=== PATIENT | female | born 1960 | race Caucasian/White ===

== ENCOUNTER 2016-07-11 10:07 | Day surgery (SDC) | payer OTHER ==
[~2016-07-11] VITALS: Ht 160 cm; Wt 68.9 kg
[~2016-07-11 10:07] MED LIST: ADVAIR 500-501 EACH IH; ALBUTEROL17 GM IH; AMBIEN10 M1 PO; AMOX TR-K CLV1 EAC4 PO; ASPIR-LOW81 MG PO; ASPIRIN E.C.81 M1 PO; Advair 500/50 Diskus IH; Aldactone PO; Aspirin E.C. PO; BENZONATATE200 MG PO; CALCITRIOL0.25 MCG PO; CALCIUM ACETAT667 MG PO; CELEXA40 MG PO; CEPHALEXIN500 M2 PO; COREG25 M1 PO; CRESTOR40 MG PO; Coreg PO; Diatx W/Zinc,Folbee PO; FLEXERIL5 MG PO; FOLBEE PLUS TABL5 MG; GENTAMICIN SULF30 GM TP; GUMMI BEAR MUL1 EACH PO; HUMALOG100 UNITS/ SC; HUMULIN R100 UNITS/ SC; Hydrodiuril,Oretic,E PO; IRBESARTAN150 MG PO; K-DUR20 MEQ PO; LANTUS 3 M100 UNITS/ SC; LASIX20 MG PO; LASIX40 MG PO; LIPITOR40 MG PO; LOSARTAN POTASS50 MG PO; METOPROLOL SUCC25 MG PO; NABI650T PO; NORVASC10 MG PO; NOVOLOG PE100 UNITS/ SC; POLYETHYLENE GL17 GM PO; PRILOSEC20 MG PO; PROAIR HFA8.5 GM IH; PROTONIX40 MG PO; PROVENTIL,2.5 MG/3 M IH; Protonix PO; Proventil,Ventolin H IH; SENNA PLUS TAB1 EACH PO; TYLENOL REGULA325 MG PO; VALSARTAN40 MG PO; VITAMIN D2400 UNIT PO; Vicodin,Norco 5/325 PO; Vitamin D, Drisdol PO; Xanax PO; ZESTRIL,PRINIVI10 M1 PO; ZESTRIL,PRINIVI40 MG PO; celeBREX PO; celeXA PO
== END 2016-07-11 17:33 | disposition home or self-care (01) ==
LOC: CATH 10:07
PROC: 047K3Z1 Dilation of Right Femoral Artery using Drug-Coated Balloon, Percutaneous Approach (ICD-10-PCS; principal; 2016-07-11)
DX: I70.213 Atherosclerosis of native arteries of extremities with intermittent claudication, bilateral legs (principal); I70.92 Chronic total occlusion of artery of the extremities; I25.10 Atherosclerotic heart disease of native coronary artery without angina pectoris; J44.9 Chronic obstructive pulmonary disease, unspecified; Z99.2 Dependence on renal dialysis; N18.6 End stage renal disease; E11.22 Type 2 diabetes mellitus with diabetic chronic kidney disease
CPT/HCPCS: C1725; C1760; C1769; C1887; C1894; J1644; J2250; J3010; S0020

== ENCOUNTER → 2016-10-17 | Outpatient (CLI) | payer MEDICARE, OTHER ==
[~2016-10-17] MED LIST changes: +DIALYVITE TABL1 EACH PO
== END | disposition home or self-care (01) ==
LOC: CDC 13:48
DX: Z01.810 Encounter for preprocedural cardiovascular examination (principal); R94.31 Abnormal electrocardiogram [ECG] [EKG]; N19 Unspecified kidney failure
CPT/HCPCS: 93000

== ENCOUNTER 2016-12-24 11:16 | Observation (INO) | payer OTHER ==
[~2016-12-24] VITALS: Ht 160 cm; Wt 71.9 kg
[2016-12-24 12:13] LABS: HEMATOCRIT 30.7 % (36.0-46.0); MCH 27.9 PG (29.0-34.0); MCHC 31.6 G/DL (30.0-36.0); MCV 88.2 FL (83-99); MEAN PLAT.VOLUME 12.3 uM^3 (9.5-12.4); PLATELET COUNT 149 K/uL (156-360); RBC DIS.WIDTH-CV 14.1 % (11.8-14.6); RBC DIS.WIDTH-SD 45.1 % (39-53); RED BLOOD COUNT 3.48 M/uL (3.80-5.20); WHITE BLOOD COUNT 4.2 K/uL (4.1-10.2)
[2016-12-24 12:25] LABS: CHLORIDE 106 mEq/L (99-109); SODIUM 142 mEq/L (136-147)
[2016-12-24 12:26] LABS: MAGNESIUM 1.7 mg/dL (1.3-2.7)
[2016-12-24 12:27] LABS: GLUCOSE 162 mg/dL (70-99)
[2016-12-24 12:29] LABS: ANION GAP 13 MEQ/L (2-14); TOTAL BILIRUBIN 0.5 mg/dL (0.0-1.0)
[2016-12-24 12:31] LABS: ALKALINE PHOSPHATASE 55 IU/L (3-129); GFR ESTIMATE (CALCULATED) 9 mL/min/
[2016-12-24 12:32] LABS: UREA NITROGEN (BUN) 65 mg/dL (9-23)
[2016-12-24 12:34] LABS: TROP-I INTERPRETATION NEGATIVE; TROPONIN-I 0.01 ng/mL (0.0-0.30)
[2016-12-24] MEDS ORDERED: DIOVAN160 MG PO (17:41)
[2016-12-24] MEDS ORDERED: K-DUR20 MEQ PO (17:42)
[2016-12-24] MEDS ORDERED: CALCITRIOL0.25 MCG PO (17:44)
[2016-12-24] MEDS ORDERED: ONE-A-DAY ESSE1 EAC1 PO (17:44)
[2016-12-24] MEDS ORDERED: CORRECTOL5 M1 PO (17:45)
[2016-12-24] MEDS ORDERED: VITAMIN D32000 UNI1 PO (17:45)
[2016-12-24] MEDS ORDERED: FUROSEMIDE40 MG PO (17:45)
[2016-12-24] MEDS ORDERED: CALCIUM ACETAT667 M2 PO ×2 (17:46→17:47)
[2016-12-24 19:41] VITALS: BP 179/75
[2016-12-24 20:38] LABS: TROP-I INTERPRETATION NEGATIVE; TROPONIN-I 0.05 ng/mL (0.0-0.30)
[2016-12-25 04:45] VITALS: BP 170/70
[2016-12-25 05:43] LABS: HEMATOCRIT 28.5 % (36.0-46.0); MCH 28.2 PG (29.0-34.0); MCHC 31.6 G/DL (30.0-36.0); MCV 89.3 FL (83-99); MEAN PLAT.VOLUME 12.6 uM^3 (9.5-12.4); PLATELET COUNT 144 K/uL (156-360); RBC DIS.WIDTH-CV 14.2 % (11.8-14.6); RBC DIS.WIDTH-SD 46.1 % (39-53); RED BLOOD COUNT 3.19 M/uL (3.80-5.20)
[2016-12-25 06:07] LABS: ANION GAP 13 MEQ/L (2-14); CHLORIDE 108 MEQ/L (99-109); GFR ESTIMATE (CALCULATED) 9 mL/min/; POTASSIUM 4.2 MEQ/L (3.7-5.4); SAMPLE HEMOLYSIS CHECK 0; SAMPLE ICTERIC CHECK 0; SAMPLE LIPEMIA CHECK 0; SODIUM 144 MEQ/L (136-147); UREA NITROGEN (BUN) 71 mg/dL (9-23)
[2016-12-25 06:14] LABS: GLUCOSE 111 mg/dL (70-99)
[2016-12-25 09:46] VITALS: BP 179/68
[2016-12-25 12:17] VITALS: BP 191/80
[2016-12-25 16:51] VITALS: BP 138/65
[2016-12-25 20:25] LABS: TROP-I INTERPRETATION NEGATIVE; TROPONIN-I 0.03 ng/mL (0.0-0.30)
== END 2016-12-25 21:43 | disposition home or self-care (01) ==
LOC: EME 11:16 → EDOF 17:59 → 5WEST 17:59 → EDOF 17:59 → 5WEST 19:15
PROVIDERS: Emergency Medicine; Hospitalist
DX: T82.118A Breakdown (mechanical) of other cardiac electronic device, initial encounter (principal); I13.2 Hypertensive heart and chronic kidney disease with heart failure and with stage 5 chronic kidney disease, or end stage renal disease; I50.9 Heart failure, unspecified; N18.6 End stage renal disease; Z95.810 Presence of automatic (implantable) cardiac defibrillator; Z99.2 Dependence on renal dialysis; J44.9 Chronic obstructive pulmonary disease, unspecified; E11.22 Type 2 diabetes mellitus with diabetic chronic kidney disease; D63.1 Anemia in chronic kidney disease; Z95.1 Presence of aortocoronary bypass graft; I25.10 Atherosclerotic heart disease of native coronary artery without angina pectoris; Z98.84 Bariatric surgery status; E78.5 Hyperlipidemia, unspecified
CPT/HCPCS: 71020; 80048; 80053; 83735; 84484; 85027; 93005; 99281; 99285; G0378; J1644

== ENCOUNTER 2017-06-25 08:15 | Inpatient (IN) | payer OTHER ==
[2017-06-25] VITALS (8 sets, daily range): BP systolic 154–189; BP diastolic 66–89
[~2017-06-25] VITALS: Ht 167.6 cm; Wt 75.7 kg
[~2017-06-25 08:15] MED LIST changes: +CALCIUM ACETAT667 M2 PO; +CORRECTOL5 M1 PO; +DIOVAN160 MG PO; +ERGOCALCIF50000 UNIT PO; +FUROSEMIDE40 MG PO; +ONE-A-DAY ESSE1 EAC1 PO
[2017-06-25 09:52] LABS: HEMATOCRIT 11.7 % (36.0-46.0); MCH 28.4 PG (29.0-34.0); MCHC 32.5 G/DL (30.0-36.0); MCV 87.3 FL (83-99); PLATELET COUNT 149 K/uL (156-360); RBC DIS.WIDTH-CV 16.1 % (11.8-14.6); RBC DIS.WIDTH-SD 51.2 % (39-53); RED BLOOD COUNT 1.34 M/uL (3.80-5.20); WHITE BLOOD COUNT 9.7 K/uL (4.1-10.2)
[2017-06-25 09:53] LABS: HEMOGLOBIN 3.8 G/DL (11.9-15.5)
[2017-06-25 09:59] LABS: CHLORIDE 102 mEq/L (99-109); POTASSIUM 5.2 mEq/L (3.7-5.4); SODIUM 136 mEq/L (136-147)
[2017-06-25 10:01] LABS: GLUCOSE 234 mg/dL (70-99)
[2017-06-25 10:05] LABS: CREATININE 7.9 mg/dL (0.6-1.3); GFR ESTIMATE (CALCULATED) 6 mL/min/
[2017-06-25 10:13] LABS: TROP-I INTERPRETATION NEGATIVE; TROPONIN-I 0.06 ng/mL (0.0-0.30)
[2017-06-25 10:18] LABS: UREA NITROGEN (BUN) 139 mg/dL (9-23)
[2017-06-25 11:29] LABS: CREATINE KINASE 61 IU/L (1-294)
[2017-06-25] MEDS ORDERED: SENSIPAR30 MG PO (12:01)
[2017-06-25] MEDS ORDERED: PROTONIX40 MG PO (12:01)
[2017-06-25] MEDS ORDERED: ROCALTROL0.5 MCG PO ×2 (12:03→12:04)
[2017-06-25 14:57] LABS: HEMATOCRIT 16.2 % (36.0-46.0); MCH 28.9 PG (29.0-34.0); MCV 85.3 FL (83-99); PLATELET COUNT 132 K/uL (156-360); RBC DIS.WIDTH-CV 14.8 % (11.8-14.6); RBC DIS.WIDTH-SD 45.3 % (39-53); WHITE BLOOD COUNT 8.8 K/uL (4.1-10.2)
[2017-06-25 14:58] LABS: HEMOGLOBIN 5.5 G/DL (11.9-15.5)
[2017-06-25 18:21] LABS: INTER. NORMALIZED RATIO 1.2
[2017-06-25 18:23] LABS: PTT 21.3 SEC (25-37)
[2017-06-25 22:27] LABS: IRON 104 MCG/DL (35-150)
[2017-06-25 22:29] LABS: TRANSFERRIN (TIBC) 187.3 mg/dL (215-380); TRANSFERRIN SATUR. 56 % (20-55)
[2017-06-26] VITALS (14 sets, daily range): BP systolic 148–190; BP diastolic 7–79
[2017-06-26 00:44] LABS: HEMATOCRIT 18.1 % (36.0-46.0); MCV 85.4 FL (83-99)
[2017-06-26 00:45] LABS: HEMOGLOBIN 6.2 G/DL (11.9-15.5)
[2017-06-26 10:09] LABS: HEMATOCRIT 29.9 % (36.0-46.0); MCV 85.7 FL (83-99)
[2017-06-26 10:10] LABS: HEMOGLOBIN 10.1 G/DL (11.9-15.5)
[2017-06-26 10:33] LABS: INTACT PARATHYROID HORMONE 255 pg/mL (10-69)
[2017-06-26 10:46] LABS: ALBUMIN 2.5 G/DL (3.2-4.8); ALKALINE PHOSPHATASE 37 IU/L (3-129); ALT (GPT) 6 IU/L (3-49); AST (GOT) 9 IU/L (2-34); CHLORIDE 105 MEQ/L (99-109); CREATININE 7.1 MG/DL (0.6-1.3); GFR ESTIMATE (CALCULATED) 6 mL/min/; GLUCOSE 203 mg/dL (70-99); POTASSIUM 4.2 MEQ/L (3.7-5.4); SODIUM 139 MEQ/L (136-147); TOTAL BILIRUBIN 0.6 MG/DL (0.0-1.0); TOTAL PROTEIN 4.4 G/DL (6.4-8.3)
[2017-06-26 11:40] LABS: UREA NITROGEN (BUN) 109 mg/dL (9-23)
[2017-06-27] VITALS (7 sets, daily range): BP systolic 141–204; BP diastolic 65–90
[2017-06-27 06:35] LABS: HEMATOCRIT 31.2 % (36.0-46.0); HEMOGLOBIN 10.7 G/DL (11.9-15.5); MCH 28.7 PG (29.0-34.0); MCHC 34.3 G/DL (30.0-36.0); MCV 83.6 FL (83-99); PLATELET COUNT 109 K/uL (156-360); RBC DIS.WIDTH-CV 14.5 % (11.8-14.6); RBC DIS.WIDTH-SD 43.6 % (39-53); WHITE BLOOD COUNT 5.5 K/uL (4.1-10.2)
[2017-06-27 06:55] LABS: RED BLOOD COUNT 3.73 M/uL (3.80-5.20)
[2017-06-27 07:07] LABS: ALBUMIN 2.6 G/DL (3.2-4.8); CHLORIDE 105 MEQ/L (99-109); GFR ESTIMATE (CALCULATED) 8 mL/min/; GLUCOSE 239 mg/dL (70-99); PHOSPHORUS 5.6 mg/dL (2.5-4.9); SODIUM 140 MEQ/L (136-147); UREA NITROGEN (BUN) 92 mg/dL (9-23)
[2017-06-27 07:12] LABS: POTASSIUM 3.3 MEQ/L (3.7-5.4)
[2017-06-28 04:55] VITALS: BP 158/86
[2017-06-28 08:51] VITALS: BP 173/85
[2017-06-28 09:08] LABS: HEMATOCRIT 31.9 % (36.0-46.0); HEMOGLOBIN 10.8 G/DL (11.9-15.5); MCH 28.7 PG (29.0-34.0); MCHC 33.9 G/DL (30.0-36.0); MCV 84.8 FL (83-99); PLATELET COUNT 119 K/uL (156-360); RBC DIS.WIDTH-CV 14.2 % (11.8-14.6); RBC DIS.WIDTH-SD 43.4 % (39-53); RED BLOOD COUNT 3.76 M/uL (3.80-5.20); WHITE BLOOD COUNT 5.4 K/uL (4.1-10.2)
[2017-06-28 12:00] VITALS: BP 158/80
[2017-06-28 16:00] VITALS: BP 132/80
[2017-06-28 19:40] VITALS: BP 166/90
[2017-06-28 23:14] VITALS: BP 165/85
[2017-06-29 04:17] VITALS: BP 144/68
[2017-06-29 06:48] LABS: BASOPHIL (%) 0.4 % (0-1); EOSINOPHIL (%) 3.6 % (0-5); EOSINOPHIL COUNT 0.2 K/uL (0-0.3); HEMATOCRIT 30.4 % (36.0-46.0); HEMOGLOBIN 10.4 G/DL (11.9-15.5); IMMATURE GRANULOCYTE (%) 0.4 % (0.0-0.7); LYMPHOCYTE (%) 17.5 % (15-42); LYMPHOCYTE COUNT 0.8 K/uL (1.0-2.8); MCH 29.5 PG (29.0-34.0); MCHC 34.2 G/DL (30.0-36.0); MCV 86.4 FL (83-99); MONOCYTE (%) 9.9 % (3-12); MONOCYTE COUNT 0.4 K/uL (0-0.8); NEUTROPHIL (%) 68.2 % (45-76); PLATELET COUNT 110 K/uL (156-360); RBC DIS.WIDTH-CV 14.5 % (11.8-14.6); RBC DIS.WIDTH-SD 43.8 % (39-53); RED BLOOD COUNT 3.52 M/uL (3.80-5.20); WHITE BLOOD COUNT 4.5 K/uL (4.1-10.2)
[2017-06-29 07:13] LABS: ALBUMIN 2.3 G/DL (3.2-4.8); CHLORIDE 105 MEQ/L (99-109); CREATININE 6.1 MG/DL (0.6-1.3); GFR ESTIMATE (CALCULATED) 8 mL/min/; GLUCOSE 141 mg/dL (70-99); PHOSPHORUS 4.6 mg/dL (2.5-4.9); POTASSIUM 3.8 MEQ/L (3.7-5.4); SODIUM 140 MEQ/L (136-147); UREA NITROGEN (BUN) 62 mg/dL (9-23)
[2017-06-29 08:00] VITALS: BP 140/68
[2017-06-29 11:00] VITALS: BP 160/78
[2017-06-29 19:30] VITALS: BP 196/86
[2017-06-29 19:56] VITALS: BP 150/70
[2017-06-29 21:44] VITALS: BP 150/74
[2017-06-30 03:05] VITALS: BP 152/74
[2017-06-30] MEDS ORDERED: NEPHRO-VITE,1 TABLET PO (06:20)
[2017-06-30] MEDS ORDERED: PROTONIX40 MG PO (06:20)
[2017-06-30] MEDS ORDERED: DIOVAN160 MG PO (06:21)
[2017-06-30 07:32] LABS: ALBUMIN 2.4 G/DL (3.2-4.8); CHLORIDE 106 MEQ/L (99-109); CREATININE 6.2 MG/DL (0.6-1.3); GFR ESTIMATE (CALCULATED) 7 mL/min/; GLUCOSE 283 mg/dL (70-99); PHOSPHORUS 5.5 mg/dL (2.5-4.9); SODIUM 141 MEQ/L (136-147); UREA NITROGEN (BUN) 54 mg/dL (9-23)
[2017-06-30 07:45] VITALS: BP 130/70
[2017-06-30 12:35] VITALS: BP 138/82
[2017-06-30 15:02] VITALS: BP 140/70
== END 2017-06-30 16:52 | disposition home or self-care (01) | DRG 377 ==
LOC: EME 08:15 → EDOF 15:13 → 4EAST 15:13 → ENRESERV 15:17 → 4EAST 19:17 → ENPENDDIS 06-30 → 4EAST 06-30 16:52
PROVIDERS: Emergency Medicine; Internal Medicine; Specialist
PROC: 3E1M39Z Irrigation of Peritoneal Cavity using Dialysate, Percutaneous Approach (ICD-10-PCS; principal; 2017-06-25)
PROC: 30233N1 Transfusion of Nonautologous Red Blood Cells into Peripheral Vein, Percutaneous Approach (ICD-10-PCS; 2017-06-25)
PROC: 0DJ08ZZ Inspection of Upper Intestinal Tract, Via Natural or Artificial Opening Endoscopic (ICD-10-PCS; 2017-06-26)
PROC: 0W3P8ZZ Control Bleeding in Gastrointestinal Tract, Via Natural or Artificial Opening Endoscopic (ICD-10-PCS; 2017-06-26)
PROC: 0DBN8ZX Excision of Sigmoid Colon, Via Natural or Artificial Opening Endoscopic, Diagnostic (ICD-10-PCS; 2017-06-29)
PROC: 0DBM8ZX Excision of Descending Colon, Via Natural or Artificial Opening Endoscopic, Diagnostic (ICD-10-PCS; 2017-06-29)
PROC: 0DBB8ZX Excision of Ileum, Via Natural or Artificial Opening Endoscopic, Diagnostic (ICD-10-PCS; 2017-06-29)
DX: K28.4 Chronic or unspecified gastrojejunal ulcer with hemorrhage (principal); D12.4 Benign neoplasm of descending colon; D12.5 Benign neoplasm of sigmoid colon; K57.30 Diverticulosis of large intestine without perforation or abscess without bleeding; D62 Acute posthemorrhagic anemia; I13.2 Hypertensive heart and chronic kidney disease with heart failure and with stage 5 chronic kidney disease, or end stage renal disease; E11.22 Type 2 diabetes mellitus with diabetic chronic kidney disease; I50.9 Heart failure, unspecified; N18.6 End stage renal disease; D63.1 Anemia in chronic kidney disease; D69.6 Thrombocytopenia, unspecified; N25.81 Secondary hyperparathyroidism of renal origin; E46 Unspecified protein-calorie malnutrition; E83.39 Other disorders of phosphorus metabolism; E83.51 Hypocalcemia; E86.0 Dehydration; E87.2 Acidosis; Z91.19 Patient's noncompliance with other medical treatment and regimen; Z91.11 Patient's noncompliance with dietary regimen; I25.10 Atherosclerotic heart disease of native coronary artery without angina pectoris; I25.2 Old myocardial infarction; I48.91 Unspecified atrial fibrillation; J44.9 Chronic obstructive pulmonary disease, unspecified; K21.9 Gastro-esophageal reflux disease without esophagitis; E78.5 Hyperlipidemia, unspecified; K43.9 Ventral hernia without obstruction or gangrene; R55 Syncope and collapse; M47.9 Spondylosis, unspecified; F32.9 Major depressive disorder, single episode, unspecified; F41.9 Anxiety disorder, unspecified; Z79.4 Long term (current) use of insulin; Z87.11 Personal history of peptic ulcer disease; Z87.891 Personal history of nicotine dependence; Z95.1 Presence of aortocoronary bypass graft; Z95.5 Presence of coronary angioplasty implant and graft; Z95.810 Presence of automatic (implantable) cardiac defibrillator; Z98.84 Bariatric surgery status; Z99.2 Dependence on renal dialysis
CPT/HCPCS: 71045; 74250; 80048; 80053; 80069; 82330; 82550 91; 82948; 83540; 83970; 84466; 84484; 85014; 85018; 85025; 85027; 85610; 85730; 86850; 86900; 86901; 86920; 88305; 93005; 99281; 99285; C9113; J0881; J1100; J2405; J2710; J2765; J3010; J7030; J7042; J7050; P9016

== ENCOUNTER 2017-09-25 05:44 | Day surgery (SDC) | payer OTHER ==
[~2017-09-25] VITALS: Ht 162.6 cm; Wt 76.7 kg
[~2017-09-25 05:44] MED LIST changes: +NEPHRO-VITE,1 TABLET PO; +ROCALTROL0.5 MCG PO; +SENSIPAR30 MG PO
[2017-09-25 06:37] LABS: HEMATOCRIT 32.1 % (36.0-46.0); MCH 27.8 PG (29.0-34.0); MCHC 31.2 G/DL (30.0-36.0); MCV 89.2 FL (83-99); PLATELET COUNT 141 K/uL (156-360); RBC DIS.WIDTH-CV 13.9 % (11.8-14.6); RBC DIS.WIDTH-SD 45.4 % (39-53); WHITE BLOOD COUNT 5.3 K/uL (4.1-10.2)
[2017-09-25] MEDS ORDERED: NIFEDIPINE ER30 MG PO (06:42)
[2017-09-25 06:52] LABS: CHLORIDE 105 MEQ/L (99-109); CREATININE 6.9 MG/DL (0.6-1.3); GFR ESTIMATE (CALCULATED) 6 mL/min/; GLUCOSE 113 mg/dL (70-99); POTASSIUM 4.2 MEQ/L (3.7-5.4); SODIUM 142 MEQ/L (136-147); UREA NITROGEN (BUN) 42 mg/dL (9-23)
[2017-09-25 07:02] VITALS: BP 172/77
[2017-09-25] MEDS ORDERED: PERCOCET 5/31 TABLET PO (09:58)
[2017-09-25 10:45] VITALS: BP 142/66
[2017-09-25 11:54] VITALS: BP 142/66
[2017-09-25 13:03] VITALS: BP 154/70
== END 2017-09-25 13:15 | disposition home or self-care (01) ==
LOC: SDC 05:44
PROVIDERS: Neurological Surgery
DX: K43.2 Incisional hernia without obstruction or gangrene (principal); K66.0 Peritoneal adhesions (postprocedural) (postinfection); Z98.84 Bariatric surgery status; Z90.710 Acquired absence of both cervix and uterus; I12.0 Hypertensive chronic kidney disease with stage 5 chronic kidney disease or end stage renal disease; E11.22 Type 2 diabetes mellitus with diabetic chronic kidney disease; N18.6 End stage renal disease; Z99.2 Dependence on renal dialysis; I25.10 Atherosclerotic heart disease of native coronary artery without angina pectoris; Z95.1 Presence of aortocoronary bypass graft; Z79.82 Long term (current) use of aspirin; Z88.5 Allergy status to narcotic agent; Z88.6 Allergy status to analgesic agent
CPT/HCPCS: 80048; 85027; 87641; C1781; J0330; J0461; J0690; J1100; J1170; J2250; J2405; J2710; J3010; J7643; S0020

== ENCOUNTER 2018-02-07 21:15 | Emergency (ER) | payer OTHER, BC ==
[~2018-02-07] VITALS: Ht 160 cm; Wt 77.7 kg
[~2018-02-07 21:15] MED LIST changes: +NIFEDIPINE ER30 MG PO; +PERCOCET 5/31 TABLET PO
[2018-02-07 23:22] LABS: HEMOGLOBIN 9.6 G/DL (11.9-15.5); MCH 26.8 PG (29.0-34.0); MCV 86.6 FL (83-99); PLATELET COUNT 128 K/uL (156-360); RBC DIS.WIDTH-CV 16.4 % (11.8-14.6); RBC DIS.WIDTH-SD 52.6 % (39-53); RED BLOOD COUNT 3.58 M/uL (3.80-5.20); WHITE BLOOD COUNT 6.8 K/uL (4.1-10.2)
[2018-02-07 23:26] LABS: CHLORIDE 105 mEq/L (99-109); POTASSIUM 4.6 mEq/L (3.7-5.4); SODIUM 139 mEq/L (136-147)
[2018-02-07 23:28] LABS: GLUCOSE 93 mg/dL (70-99)
[2018-02-07 23:32] LABS: CREATININE 9.9 mg/dL (0.6-1.3); GFR ESTIMATE (CALCULATED) 4 mL/min/
[2018-02-07 23:33] LABS: UREA NITROGEN (BUN) 69 mg/dL (9-23)
[2018-02-07 23:36] LABS: TROP-I INTERPRETATION NEGATIVE; TROPONIN-I 0.06 ng/mL (0.0-0.30)
[2018-02-08 01:23] VITALS: BP 168/75
== END 2018-02-08 01:23 | disposition home or self-care (01) ==
LOC: EME 21:15
PROVIDERS: Emergency Medicine
DX: J90 Pleural effusion, not elsewhere classified (principal); E87.70 Fluid overload, unspecified; E11.22 Type 2 diabetes mellitus with diabetic chronic kidney disease; N18.6 End stage renal disease; I50.9 Heart failure, unspecified; Z99.2 Dependence on renal dialysis; I25.2 Old myocardial infarction; I25.10 Atherosclerotic heart disease of native coronary artery without angina pectoris; J45.909 Unspecified asthma, uncomplicated; Z95.1 Presence of aortocoronary bypass graft; Z95.5 Presence of coronary angioplasty implant and graft; Z98.84 Bariatric surgery status; Z87.19 Personal history of other diseases of the digestive system; Z88.6 Allergy status to analgesic agent; Z88.5 Allergy status to narcotic agent; Z87.891 Personal history of nicotine dependence
CPT/HCPCS: 71046; 80048; 83605; 83880; 84484; 85027; 93005; 99281; 99284